=== PATIENT | female | born 2005 | race Caucasian/White ===

== ENCOUNTER 2025-05-11 10:19 | Inpatient (IN) | payer OTHER ==
[~2025-05-11 10:19] MED LIST: Bupivacaine 0.25% HCL 30 ML VIAL ONE
[2025-05-11] MEDS ORDERED: Lidocaine 1% (PF) 30 ML VIAL SC PRN (10:32)
[2025-05-11] MEDS ORDERED: Tranexamic Acid 1,000 MG/10 ML VIAL IVP PRN (10:32)
[2025-05-11] MEDS ORDERED: Ibuprofen 800 MG TAB PO PRN (10:32)
[2025-05-11] MEDS ORDERED: Carboprost 250 MCG/ML AMP IM PRN (10:32)
[2025-05-11] MEDS ORDERED: Methylergonovine 0.2 MG/ML VIAL IM PRN ×2 (10:32→17:46)
[2025-05-11] MEDS ORDERED: Ondansetron PF 4 MG/2 ML Vial IVP PRN ×3 (10:32→17:46)
[2025-05-11] MEDS ORDERED: hydrALAZINE 20 MG/ML VIAL SLOW IVP PRN ×2 (10:32→17:46)
[2025-05-11] MEDS ORDERED: Diphenoxylate HCl/Atropine Tablet PO PRN ×2 (10:32)
[2025-05-11] MEDS ORDERED: Acetaminophen 500 MG TAB PO PRN (10:32)
[2025-05-11] MEDS ORDERED: Oxytocin 30 units/NS 500 ML 500 ML IV SCH ×3 (10:45→18:00)
[2025-05-11 11:16] VITALS: BMI 34.2
[2025-05-11 11:17] LABS: Hematocrit 31.1 % (34.9-44.5); Hemoglobin 10.2 g/dL (12.0-15.5); Mean Corpuscular Hemoglobin 26.3 pg (27.0-33.0); Mean Corpuscular Volume 80.2 fL (81.6-98.3); Platelet Count 291 10x3/uL (150-450); Red Blood Cell (RBC) Count 3.88 10x6/uL (3.90-5.03); White Blood Cell (WBC) Count 10.84 10x3/uL (3.5-10.5)
[2025-05-11] MEDS ORDERED: diphenhydrAMINE 50 MG/ML VIAL IVP PRN (11:33)
[2025-05-11] MEDS ORDERED: Communication Order-Pharmacy FS SCH (11:45)
[2025-05-11] MEDS ORDERED: fentaNYL 2 mcg/Ropivacaine 0.2% Epidural 100 ML CADD EPIDURAL SCH (11:45)
[2025-05-11] MEDS: fentaNYL/Ropivacaine Epidural 100 ML ONE (11:50)
[2025-05-11 12:06] LABS: Hep B Surf Ag - L&D Non-Reactive S/CO (NonReactive)
[2025-05-11 12:07] LABS: Syphilis Antibody Index 0.04 S/CO (<1.00 Non-Reactive)
[2025-05-11 16:22] LABS: Cocaine Metabolite Screen Negative (Negative); THC/Cannabinoid Screen Negative (Negative); Tricyclic Screen Negative (Negative)
[2025-05-11] MEDS ORDERED: Methylergonovine 0.2 MG TAB PO PRN (17:46)
[2025-05-11] MEDS ORDERED: Milk Of Magnesia 30 ML UDCUP PO PRN (17:46)
[2025-05-11] MEDS ORDERED: Bisacodyl 10 MG SUPP PR PRN (17:46)
[2025-05-11] MEDS ORDERED: Preparation H Ointment 28 GM TUBE PR PRN (17:46)
[2025-05-11] MEDS ORDERED: diphenhydrAMINE 25 MG CAP PO PRN (17:46)
[2025-05-11] MEDS ORDERED: Lanolin Ointment 7 GM TUBE TOP PRN (17:46)
[2025-05-11] MEDS: Ibuprofen 800 MG TAB PO SCH (18:45)
[2025-05-11] MEDS: HYDROcodone/Acetaminophen 5/325 mg Tablet PO SCH (21:20)
[2025-05-11] MEDS: Benzocaine-Menthol 82.5 ML CAN TOP PRN (23:14)
[2025-05-11 23:24] LABS: Hep C IgG Ab NONREACTIVE S/CO (NonReactive); Hep C Index 0.05 S/CO (0-0.79)
[2025-05-12] MEDS ORDERED: Pantoprazole 40 MG DR.TAB PO SCH (04:00)
[2025-05-12] MEDS: Calcium Carbonate 500 MG ChewTAB PO PRN (04:05)
[2025-05-12 04:45] LABS: Hematocrit 28.4 % (34.9-44.5); Hemoglobin 9.0 g/dL (12.0-15.5)
[2025-05-12] MEDS: Boostrix 0.5 ML (Tdap) VIAL (>/=7 yrs of age) IM ONE (07:30)
[2025-05-12] MEDS: Acetaminophen 325 MG TAB PO PRN (08:17)
[2025-05-12] MEDS: Ferrous Sulfate 325 MG TAB PO SCH (08:17)
[2025-05-13 08:59] VITALS: BP 136/89; TEMP 97.9
== END 2025-05-13 17:35 | disposition home or self-care (01) | DRG 807 ==
LOC: CSHLD/OP 10:19 → CSHLD 12:01 → CSHPP 19:20
PROVIDERS: ADMIT Obstetrics & Gynecology; ATTEND Obstetrics & Gynecology
PROC: 10E0XZZ Delivery of Products of Conception, External Approach (ICD-10-PCS; principal; 2025-05-11)
PROC: 4A1HXCZ Monitoring of Products of Conception, Cardiac Rate, External Approach (ICD-10-PCS; 2025-05-11)
PROC: 10907ZC Drainage of Amniotic Fluid, Therapeutic from Products of Conception, Via Natural or Artificial Opening (ICD-10-PCS; 2025-05-11)
DX: O80 Encounter for full-term uncomplicated delivery (principal); Z37.0 Single live birth; Z3A.39 39 weeks gestation of pregnancy; Z79.899 Other long term (current) drug therapy
CPT/HCPCS: 36415; 51702; 80306; 83036; 85014; 85018; 86762; 86780; 86803; 86850; 86900; 86901; 87340; 99285; J0665